=== PATIENT | female | born 1980 | race Hispanic/Latino ===

== ENCOUNTER 2023-07-18 05:58 | Day surgery (SDC) | payer OTHER ==
[2023-07-13 14:36] VITALS: BP 125/78; PULSE 82; RESP 16
[2023-07-13 15:07] LABS: BASOPHILS # (AUTO) 0.05 K/uL (0.00-0.20); BASOPHILS % (AUTO) 0.6 % (0.0-5.0); EOSINOPHILS # (AUTO) 0.18 K/uL (0.00-0.70); EOSINOPHILS % (AUTO) 2.3 % (0.0-8.0); HEMATOCRIT 42.1 % (36-48); IMMATURE GRANULOCYTE ABSOLUTE 0.02 K/uL (0-1); LYMPHOCYTES % (AUTO) 50.4 % (21.0-51.0); MEAN CORPUSCULAR HEMOGLOBIN 31.1 pg (27.0-33.0); MEAN CORPUSCULAR HGB CONC 33.3 g/dL (32.0-36.0); MEAN CORPUSCULAR VOLUME 93.6 fL (79-99); MONOCYTES # (AUTO) 0.4 K/uL (0.1-1.0); MONOCYTES % (AUTO) 5.6 % (3.0-13.0); NEUTROPHILS # (AUTO) 3.2 K/uL (1.8-7.7); NEUTROPHILS % (AUTO) 40.8 % (40.0-77.0); PLATELET COUNT (AUTO) 242 K/uL (130-400); RED CELL DISTRIBUTION WIDTH 12.8 % (11.0-15.5); WHITE BLOOD COUNT (AUTO) 7.9 K/uL (4.8-10.8)
[2023-07-13 15:18] LABS: CREATININE 0.8 mg/dL (0.5-1.5)
[2023-07-13 15:19] LABS: INR < 0.93 (0.85-1.15); PROTHROMBIN TIME 10.8 SEC (9.6-11.6)
[2023-07-13 15:20] LABS: PARTIAL THROMBOPLASTIN TIME 27.9 SEC (26.3-35.5)
[2023-07-18] VITALS (16 sets, daily range): BP systolic 108–136; BP diastolic 63–86; PULSE 68–90; RESP 15–19
[~2023-07-18] VITALS: Ht 165.1 cm; Wt 73.1 kg
[~2023-07-18 05:58] MED LIST: ALBU10.7 PUFF; ASHW500C PO; LEVO100T12 PO; METO-408 PO
[2023-07-18] MEDS ORDERED: LACTATED RINGERS 1000ML 1,000 ML IV ONE (06:13)
[2023-07-18] MEDS ORDERED: CEFAZOLIN SODIUM 2 GM VIAL ONE (06:13)
[2023-07-18] MEDS ORDERED: LIDOCAINE PF 100MG/5ML (2%) SYRINGE 5ML ONE (06:59)
[2023-07-18] MEDS ORDERED: ROCURONIUM 10MG/1ML SYR 10 MG/ML ML ONE (07:00)
[2023-07-18] MEDS ORDERED: PROPOFOL 10 MG/ML 20ML VIAL IV ONE (07:00)
[2023-07-18] MEDS ORDERED: MIDAZOLAM HCL 1 MG/ML 2ML VIAL ONE (07:00)
[2023-07-18] MEDS ORDERED: FENTANYL CITRATE PF 50 MCG/1 ML 2ML VIAL ONE (07:05)
[2023-07-18] MEDS ORDERED: ACETAMINOPHEN 1,000 MG/100 ML VIAL IV ONE (07:19)
[2023-07-18] MEDS ORDERED: ONDANSETRON 4MG INJ ONE (07:33)
[2023-07-18] MEDS ORDERED: DEXAMETHASONE SOD PHOSPHATE 10MG/ML 1ML VIAL ONE (07:33)
[2023-07-18] MEDS ORDERED: BUPIVACAINE/PF 0.5% 30ML VIAL ONE (07:35)
[2023-07-18] MEDS ORDERED: BUPIVACAINE/PF 0.5% 30ML VIAL INJ ONE (07:38)
[2023-07-18] MEDS ORDERED: TRAM50TA4 PO (08:03)
[2023-07-18] MEDS ORDERED: DOCU-116 PO (08:03)
== END 2023-07-18 09:48 | disposition home or self-care (01) ==
LOC: DAH 05:58
PROVIDERS: ATTEND Surgery
DX: C50.412 Malignant neoplasm of upper-outer quadrant of left female breast (principal); I10 Essential (primary) hypertension; E03.9 Hypothyroidism, unspecified; G43.909 Migraine, unspecified, not intractable, without status migrainosus; J44.9 Chronic obstructive pulmonary disease, unspecified; Z80.0 Family history of malignant neoplasm of digestive organs; Z82.49 Family history of ischemic heart disease and other diseases of the circulatory system; Z83.3 Family history of diabetes mellitus; N80.9 Endometriosis, unspecified; Z79.51 Long term (current) use of inhaled steroids; Z79.899 Other long term (current) drug therapy; Z79.890 Hormone replacement therapy; Z98.890 Other specified postprocedural states
CPT/HCPCS: 80048; 84703; 85025; 85610; 85730; 36415; 36561; 81025; 77001; 71045; A6260; A4663; A4606; C1788; J7120; J3010; J1100; J2001; J2250; J2704; J2405; J0665 ×2; J1644; J0690; A4215; A4223; A4222; A4221; A4600; 77002; J3490